=== PATIENT | female | born 1950 | race Caucasian/White ===

== ENCOUNTER → 2021-03-06 | Day surgery (SDC) | payer MEDICARE, OTHER ==
[~2021-03-06] VITALS: Ht 167.6 cm; Wt 147.9 kg
[~2021-03-06] MED LIST: ACTOS15 MG PO; BACTROBAN NASAL1 GM TOP; BIOTIN1000 MCG PO; CALCIUM WITH V1 EAC2 PO; CBD CAPSULE PO; CEPHALEXIN500 M1 PO; COLACE100 MG PO; COUMADIN6 MG PO; CYMBALTA 30MG C30 MG PO; EUTHYROX112 MCG PO; EYE VITAMIN; GLUCOTROL10 MG PO; IBANDRONATE SO150 MG PO; JANUMET XR 1001 EACH PO; METFORMIN HCL500 MG PO; MOTRIN600 MG PO; PERCOCET 5-3251 EACH PO; PERCOCET 5/3251 TAB PO; PRINIVIL10 MG PO; TOPROL XL 25MG25 MG PO; TOPROL XL 50 MG50 MG PO; VIBRAMYCIN100 MG PO; VOLTAREN **OUT50 MG PO; XARELTO10 MG PO; ZOCOR20 MG PO
[2021-03-06 11:43] LABS: HCT 43.9 % (37.0-47.0); HGB 14.4 g/dl (12.5-16.0); MCH 29.3 pg (25.0-31.0); MCHC 32.8 g/dL (32.0-36.0); MCV 89.2 fL (78.0-100.0); MPV 10.2 fL (6.0-9.5); RBC 4.92 M/uL (4.20-5.40); RDW 14.2 % (11.5-14.0); WBC 8.8 K/uL (4.0-10.5)
[2021-03-06 11:59] LABS: ALBUMIN 3.2 g/dL (3.4-5.0); BILIRUBIN - TOTAL 1.4 mg/dL (0.2-1.0); BUN/CREAT RATIO (CALC) 26.2 RATIO; CREATININE 0.8 mg/dL (0.51-0.95); GLOBULIN (CALCULATION) 4.1 g/dL; POTASSIUM 4.3 mmol/L (3.5-5.1); TOTAL PROTEIN 7.3 g/dL (6.4-8.2)
== END | disposition home or self-care (01) ==
LOC: FAS 10:27
PROVIDERS: Orthopaedic Surgery
DX: M75.111 Incomplete rotator cuff tear or rupture of right shoulder, not specified as traumatic (principal); Z98.890 Other specified postprocedural states; M75.01 Adhesive capsulitis of right shoulder; R00.1 Bradycardia, unspecified
CPT/HCPCS: 36415; 71045; 80053; 93005; J0171; J0690; J0735; J1100; J1885; J2250; J2405; J2704; J2795; J7120

== ENCOUNTER 2021-03-16 08:01 | Emergency (ER) | payer MEDICARE, OTHER ==
[~2021-03-16 08:01] MED LIST changes: -BACTROBAN NASAL1 GM TOP; -CEPHALEXIN500 M1 PO
[2021-03-16 10:09] LABS: BASOPHIL 0.8 % (0-2); EOSINOPHIL 1.6 % (0-7); HCT 40.2 % (37.0-47.0); HGB 13.1 g/dl (12.5-16.0); MCH 29.3 pg (25.0-31.0); MCHC 32.6 g/dL (32.0-36.0); MCV 89.9 fL (78.0-100.0); MONOCYTE 7.6 % (0-12); MPV 10.5 fL (6.0-9.5); NEUTROPHIL 63.6 % (41-80); NRBC 0; PLT 265 K/uL (150-400); RBC 4.47 M/uL (4.20-5.40); WBC 10.4 K/uL (4.0-10.5)
[2021-03-16 10:33] LABS: INR 1.66 (0.9-1.2); PROTHROMBIN TIME 18.8 SECONDS (11.8-13.4); PTT 38.3 SECONDS (24.4-34.7)
[2021-03-16 10:43] LABS: ALBUMIN 2.9 g/dL (3.4-5.0); BILIRUBIN - TOTAL 1.4 mg/dL (0.2-1.0); BUN/CREAT RATIO (CALC) 21.4 RATIO; CREATININE 0.84 mg/dL (0.51-0.95); GLOBULIN (CALCULATION) 3.7 g/dL; POTASSIUM 4.4 mmol/L (3.5-5.1); TOTAL PROTEIN 6.6 g/dL (6.4-8.2)
[2021-03-16] MEDS ORDERED: CEPHALEXIN500 M1 PO (12:45)
[2021-03-16] MEDS ORDERED: BACTROBAN NASAL1 GM TOP (12:49)
== END 2021-03-16 13:06 | disposition home or self-care (01) ==
LOC: FER 08:01
PROVIDERS: Emergency Medicine
DX: L02.415 Cutaneous abscess of right lower limb (principal); L03.115 Cellulitis of right lower limb; I48.91 Unspecified atrial fibrillation; E11.9 Type 2 diabetes mellitus without complications; Z86.711 Personal history of pulmonary embolism; Z79.01 Long term (current) use of anticoagulants
CPT/HCPCS: 36415; 73701; 80053; 83605; 84145; 85025; 85610; 85730; 87040; J3370; J7050; Q9967

== ENCOUNTER → 2021-07-27 | Day surgery (SDC) | payer MEDICARE, OTHER ==
[~2021-07-27] VITALS: Ht 167.6 cm; Wt 147.9 kg
[~2021-07-27] MED LIST changes: +BACTROBAN NASAL1 GM TOP; +CEPHALEXIN500 M1 PO
[2021-07-27 08:08] LABS: INR 1.1 (0.9-1.2); PROTHROMBIN TIME 13.6 SECONDS (11.8-13.4); PTT 28.5 SECONDS (24.4-34.7)
== END | disposition home or self-care (01) ==
LOC: FAS 07:13
PROVIDERS: Student in an Organized Health Care Education/Training Program
DX: Z12.11 Encounter for screening for malignant neoplasm of colon (principal); K63.5 Polyp of colon; K57.30 Diverticulosis of large intestine without perforation or abscess without bleeding; Z86.010 Personal history of colon polyps; I10 Essential (primary) hypertension; E11.9 Type 2 diabetes mellitus without complications; E78.5 Hyperlipidemia, unspecified; I48.91 Unspecified atrial fibrillation; G47.30 Sleep apnea, unspecified; B15.9 Hepatitis A without hepatic coma; E03.9 Hypothyroidism, unspecified; M19.90 Unspecified osteoarthritis, unspecified site; E78.00 Pure hypercholesterolemia, unspecified; M81.0 Age-related osteoporosis without current pathological fracture; E66.01 Morbid (severe) obesity due to excess calories; Z79.01 Long term (current) use of anticoagulants; Z88.8 Allergy status to other drugs, medicaments and biological substances; Z99.89 Dependence on other enabling machines and devices; Z79.84 Long term (current) use of oral hypoglycemic drugs; Z79.899 Other long term (current) drug therapy; Z68.42 Body mass index [BMI] 45.0-49.9, adult; Z90.49 Acquired absence of other specified parts of digestive tract; Z90.710 Acquired absence of both cervix and uterus; Z98.51 Tubal ligation status; Z80.42 Family history of malignant neoplasm of prostate; Z80.0 Family history of malignant neoplasm of digestive organs; Z80.49 Family history of malignant neoplasm of other genital organs; Z80.3 Family history of malignant neoplasm of breast; Z87.891 Personal history of nicotine dependence
CPT/HCPCS: 36415; 85610; 85730; J2704; J7120